=== PATIENT | female | born 1985 | race Caucasian/White ===

== ENCOUNTER 2016-12-14 04:44 | Inpatient (IN) ==
[2016-12-12 12:22] LABS: MANUAL DIFF NEEDED? NO; URINE SOURCE CLEAN CATCH
[2016-12-12 12:39] LABS: BILIRUBIN URINE NEGATIVE (NEGATIVE); BLOOD URINE 4+ (NEGATIVE); CLARITY CLEAR (CLEAR); COLOR YELLOW; GLUCOSE URINE NEGATIVE (NEGATIVE); LEUKOCYTES URINE NEGATIVE (NEGATIVE); NITRITE URINE NEGATIVE (NEGATIVE); PH URINE 6.5; PROTEIN URINE NEGATIVE (NEGATIVE); URINE MICROSCOPIC NEEDED? YES; UROBILINOGEN URINE NORMAL
[2016-12-12 12:50] LABS: URINE EPITHELIAL CELLS <10 /HPF (<10); URINE RBC TNTC /HPF (<10); URINE WBC <10 /HPF (<10)
[2016-12-12 12:51] LABS: BASO% 0.4 % (0.0-0.8); EOS# 0.09 X1000 (0.0-0.7); EOS% 1.3 % (0.0-10.0); HEMOGLOBIN 12.7 g/dL (12.0-16.0); IMM GRAN# 0.01 X1000 (0.0-0.04); IMM GRAN% 0.1 % (0.0-0.5); LYMPH# 2.18 X1000 (1.2-3.4); LYMPH% 30.5 % (20.5-51.1); MCH 33.7 PG (27-31); MCHC 34.3 g/dL (33-37); MCV 98.1 FL (81-99); MONO# 0.72 X1000 (0.11-0.59); MONO% 10.1 % (1.7-9.3); MPV 10.4 FL (7.4-10.4); NEUT% 57.6 % (42.2-75.2); PLT 272 X1000 (130-400); RBC 3.77 XMIL (4.2-5.4)
[2016-12-14] MEDS ORDERED: LR 1,000 ML IV SCH ×2 (06:10→12:38)
[2016-12-14] MEDS ORDERED: VERSED ONE (08:17)
[2016-12-14] MEDS ORDERED: FENTANYL ONE (08:17)
[2016-12-14] MEDS ORDERED: DIPRIVAN 1% ONE (08:18)
[2016-12-14] MEDS ORDERED: PEPCID ONE (08:19)
[2016-12-14] MEDS ORDERED: KEFZOL 1 GM/D5W 1 GM/50 ML IVPB ONE (09:46)
[2016-12-14 10:37] LABS: URINE MICROSCOPIC NEEDED? NO; URINE SOURCE CATH
[2016-12-14 10:41] LABS: BILIRUBIN URINE NEGATIVE (NEGATIVE); BLOOD URINE NEGATIVE (NEGATIVE); CLARITY CLEAR (CLEAR); COLOR YELLOW; GLUCOSE URINE NEGATIVE (NEGATIVE); LEUKOCYTES URINE NEGATIVE (NEGATIVE); NITRITE URINE NEGATIVE (NEGATIVE); PROTEIN URINE NEGATIVE (NEGATIVE); UROBILINOGEN URINE NORMAL
--- NOTE | 2016-12-14 11:31 | HISTORY AND PHYSICAL ---
PREOPERATIVE DIAGNOSIS: 1. Pelvic pain. 2. Dysmenorrhea. 3. Dyspareunia. CONDITION: Stable. HISTORY OF PRESENT ILLNESS: Ms. Blanchard is a 31-year-old, 2, para 2, who has experienced the above complaints over the past few years unresponsive to medical treatment. Ultrasound revealed a normal sized uterus, but suspicious for adenomyosis and a complex right ovarian cyst. She had previously been treated with left salpingo-oophorectomy. She desires definitive treatment with hysterectomy and removal of her ovary, understanding that she will need to be on hormones. PAST MEDICAL HISTORY: As before. PAST SURGICAL HISTORY: She has had LSO, Appendectomy, gallbladder surgery, tonsillectomy, lymph node biopsy, tubal ligation along with 2 pregnancies, 2 deliveries , Pap normal. ALLERGIES: Demerol. Reglan. Phenergan. Zofran. Compazine. FAMILY HISTORY: Significant for diabetes in her mother. She is an everyday smoker, half pack per day. PHYSICAL EXAMINATION: VITAL SIGNS: The patient is 190 pounds, 5 feet 8, blood pressure 110/70. GENERAL: Alert and cooperative, no distress. NECK: Is supple. LUNGS: Clear. HEART: Regular sinus rhythm. ABDOMEN: Benign. PELVIC: Exam deferred. EXTREMITIES: No cyanosis, clubbing, edema. ASSESSMENT: As above. PLAN: Abdominal hysterectomy with right salpingo-oophorectomy. cc: Dixon Naranjo MD
--- NOTE | 2016-12-14 11:50 | OPERATIVE NOTE ---
PROCEDURE DATE: 12/14/2016 DATE OF SURGERY: 12/14/2016. PREOPERATIVE DIAGNOSIS: Pelvic pain, complex adnexal mass. POSTOPERATIVE DIAGNOSIS: Pelvic pain, complex adnexal mass. PROCEDURE: Abdominal hysterectomy with right salpingo-oophorectomy. PHYSICIAN: Dr. Dixon Naranjo. FAMILY SUPPORT WORKER: Dr. Aime Duran. ANESTHESIA: General endotracheal with Dr. Her. student accounts coordinator Taylor Hurd was also scrubbed. ESTIMATED BLOOD LOSS: 100 mL. FINDINGS: She had enlarged 6 cm complex ovary. Uterus was not enlarged. Increased vasculature along the old scar in the bladder. COMPLICATIONS: None. PATHOLOGY: Right tube and ovary and uterus. DRAINS: Mccartney catheter. Please refer to Ms. Blanchard's H and P. She was admitted, questions were answered. DESCRIPTION OF PROCEDURE IN DETAIL: She is brought to the operating room, placed under general endotracheal anesthesia, prepped and draped in a sterile manner with the Mccartney being inserted. A Pfannenstiel skin incision was made, extended through the subcuticular tissue, the fascia. The muscle was identified and midline was opened sharply and pulled to the side. O'Mauricio-O'Hatch was placed. The bowel was packed away. The uterus was grasped with a tenaculum. Right ovary was elevated to expose the infundibulopelvic, which was grasped, cauterized, and cut. Then, the round ligament and utero-ovarian ligament, grasped, cauterized, and cut anterior and posterior, so the broad ligament grasped, cauterized, and cut to the level of the internal cervical os. Then, attention was turned to the left side where the round ligament, anterior and posterior leaves of the broad ligament were grasped, cauterized, and cut down to the level of the internal cervical os. Then, bladder adhesions were sharply dissected. The bladder was pushed down, exposing the uterine arteries which were grasped, cauterized and cut. Then using straight clamps, the cardinal ligaments were grasped, cut and suture ligated down to the level of the uterosacrals. So a curved clamp was placed across the uterosacrals and the lateral edge of the apical part of the vagina. This was cut and then suture ligated. When both sides were done, the specimen was removed. There was no cuff left to close. There was no bleeding. Irrigation was done. Just a small amount of oozing from bladder veins. Some Surgicel was placed. The bladder was allowed to fall down. Retractor was removed. Laps were removed. Count was correct. Muscle was plicated in the midline with the peritoneum with a running stitch of 3-0 chromic. Fascia reapproximated with interrupted stitches of 0 chromic, then a running nonlocking stitch of 0 chromic. Subcutaneous tissue was irrigated and made hemostatic by electrocautery. Ingrid's fascia reapproximated with interrupted stitches of 0 Polysorb. Fascia was closed with Polysorb. Then skin was closed with 4-0 Biosyn in a subcuticular stitch. All counts were correct. She was taken to the recovery room in stable condition. cc: Dixon Naranjo MD
[2016-12-14] MEDS: DILAUDID ONE ×4 (11:56→12:13)
[2016-12-14] MEDS ORDERED: DILAUDID PCA VIAL ONE (12:14)
[2016-12-14] MEDS ORDERED: TORADOL ONE (12:23)
[2016-12-14] MEDS ORDERED: NARCAN IV PRN (12:38)
[2016-12-14] MEDS ORDERED: DILAUDID PCA VIAL IV PRN (12:38)
[2016-12-14] MEDS ORDERED: BENADRYL IV PRN (12:38)
[2016-12-14] MEDS ORDERED: ZOFRAN IV PRN (12:38)
[2016-12-14] MEDS: LR 1,000 ML IV SCH ×2 (13:10→19:28)
[2016-12-14] MEDS: OFIRMEV 1000 MG/ISOTONIC SOLN 1,000 MG/100 ML BOTTLE IV SCH ×2 (13:45→20:38)
[2016-12-14] MEDS: TORADOL IV SCH (18:41)
[2016-12-14] MEDS: COLACE PO SCH (20:38)
[2016-12-14] MEDS: PERIDEX MT SCH (20:38)
[2016-12-14] MEDS: NORCO-7.5 PO SCH (21:17)
[2016-12-15] MEDS: LR 1,000 ML IV SCH ×2 (01:13→03:18)
[2016-12-15] MEDS: TORADOL IV SCH ×2 (01:13→05:52)
[2016-12-15] MEDS: OFIRMEV 1000 MG/ISOTONIC SOLN 1,000 MG/100 ML BOTTLE IV SCH (01:53)
[2016-12-15 06:05] LABS: MANUAL DIFF NEEDED? NO
[2016-12-15 06:19] LABS: BASO% 0.1 % (0.0-0.8); EOS# 0.02 X1000 (0.0-0.7); EOS% 0.2 % (0.0-10.0); HEMATOCRIT 32.4 % (37.0-47.0); HEMOGLOBIN 10.7 g/dL (12.0-16.0); IMM GRAN# 0.02 X1000 (0.0-0.04); IMM GRAN% 0.2 % (0.0-0.5); LYMPH# 1.45 X1000 (1.2-3.4); MCH 32.8 PG (27-31); MCV 99.4 FL (81-99); MONO# 1.03 X1000 (0.11-0.59); MONO% 9.2 % (1.7-9.3); MPV 11.2 FL (7.4-10.4); NEUT% 77.3 % (42.2-75.2); PLT 240 X1000 (130-400); RBC 3.26 XMIL (4.2-5.4)
[2016-12-15] MEDS: NORCO-7.5 PO SCH ×2 (08:08→13:16)
[2016-12-15] MEDS: PERIDEX MT SCH ×2 (08:13→22:28)
[2016-12-15] MEDS: COLACE PO SCH ×2 (08:13→22:28)
--- NOTE | 2016-12-15 13:57 | PROGRESS NOTE ---
DATE: 12/15/2016 SUBJECTIVE: She is postoperative day 1. PHYSICAL EXAMINATION: General: She is without complaints, other than soreness and pain. Physical examination is within normal limits. Vital Signs: Her vitals are stable. She is afebrile. Lungs: Clear. Heart: Regular sinus rhythm. Abdomen: Slightly distended. Incision bandage is dry. Extremities: No cyanosis, clubbing, or edema in her extremities. LABORATORIES: Hemoglobin 10, hematocrit 32, white count 11. PLAN: Expect routine postoperative care. Advance diet, ambulation, and transition to p.o. pain medicine. cc: Dixon Naranjo MD
[2016-12-15] MEDS: MOTRIN PO PRN (16:03)
[2016-12-15] MEDS: MYLICON PO SCH ×2 (17:44→22:27)
[2016-12-15] MEDS ORDERED: DULCOLAX PR PRN (18:18)
[2016-12-15] MEDS: NORCO-7.5 PO PRN (19:13)
[2016-12-16] MEDS: NORCO-7.5 PO PRN ×3 (00:04→12:29)
[2016-12-16] MEDS: MOTRIN PO PRN ×2 (00:04→07:57)
[2016-12-16] MEDS: LR 1,000 ML IV SCH (00:58)
[2016-12-16] MEDS: PERIDEX MT SCH (07:57)
[2016-12-16] MEDS: COLACE PO SCH (07:57)
[2016-12-16] MEDS: MYLICON PO SCH (07:57)
[2016-12-16 12:20] VITALS: BP 105/6
[2016-12-16] MEDS ORDERED: QUELICIN (DOSE) ONE (18:14)
[2016-12-16] MEDS ORDERED: ZEMURON ONE (18:14)
[2016-12-16] MEDS ORDERED: ROBINUL ONE (18:14)
[2016-12-16] MEDS ORDERED: XYLOCAINE-MPF 2% ONE (18:14)
[2016-12-16] MEDS ORDERED: NEOSTIGMINE ONE (18:14)
--- NOTE | 2016-12-17 09:57 | DISCHARGE SUMMARY ---
ADMISSION DATE: 12/14/2016 DISCHARGE DATE: 12/16/2016 PRINCIPAL DIAGNOSIS: Pelvic pain. PRINCIPAL PROCEDURE: Total abdominal hysterectomy, right salpingo-oophorectomy, left salpingectomy. HOSPITAL COURSE: The patient presented on 12/14/2016 for scheduled MARLENA-RSO with left salpingectomy. The procedures were performed without complications and the patient was subsequently transferred to the 2nd floor where her postoperative course has remained uneventful. The patient is ambulating without assistance. She is tolerating a regular diet without nausea or vomiting. Her pain is well controlled on p.o. pain medications. The patient has minimal vaginal bleeding. CONDITION ON DISCHARGE: Stable. ELIMINATION CAPACITY: Independent. FEEDING CAPACITY: Independent. LOCOMOTION CAPACITY: Independent. REHAB POTENTIAL: Good. PROGNOSIS: Good. DISCHARGE MEDICATIONS: [place] 7.5 mg 1-2 tablets p.o. q.6 hours p.r.n. pain. DIET: The patient is to maintain a regular diet. PHYSICAL ACTIVITY: As tolerated. DISCHARGE INSTRUCTIONS: Patient is ordered to maintain pelvic rest x6 weeks. The patient is ordered to call or return if fever greater than 100.4, heavy vaginal bleeding, foul smelling vaginal discharge, or any acute changes. She is to be discharged home with orders to follow up with Dr. Naranjo in 2 weeks for incision check. cc: MD Dixon Sarabia MD
== END 2016-12-16 16:15 | disposition home or self-care (01) ==
LOC: SURHOLD 04:44 → P.WC 05:56
PROVIDERS: ADMIT Obstetrics & Gynecology; ATTEND Obstetrics & Gynecology